=== PATIENT | female | born 1990 | race African-American/Black ===

== ENCOUNTER → 2017-02-25 | Outpatient (CLI) | payer OTHER ==
[2017-02-27 12:47] LABS: QUANTIFERON NEGATIVE (NEGATIVE); QUANTIFERON NIL 0.09 IU/ML
== END | disposition home or self-care (01) ==
LOC: C.LABSPEC 12:29
PROVIDERS: ATTEND Family Medicine
DX: Z11.3 Encounter for screening for infections with a predominantly sexual mode of transmission (principal); Z11.1 Encounter for screening for respiratory tuberculosis

== ENCOUNTER 2019-03-28 20:14 | Inpatient (IN) ==
[2019-03-28] MEDS ORDERED: OXYTOCIN 30 UNITS/500 ML BAG IV PRN (20:55)
--- NOTE | 2019-03-28 20:58 | History & Physical Report ---
Date of Service March 28, 2019 Assessment & Plan (1) : Admit to L&D, labs, IV access. Patient is thinking she'd like to labor naturally and avoid epidural. OK to walk hallways. History of Present Illness Chief Complaint: contractions Primary Care Provider: Chinedu Chau 28 yo @ 39 3/7 presents with regular contractions Q 5 min. No leaking of fluid, no vaginal bleeding. + movement. complicated by multiple uterine fibroids. Allergies Allergy/AdvReac Type Severity Reaction Status Date / Time No Known Drug Allergies Allergy Unknown Verified 03/28/19 20:52 Home Medications Home Medications Medication Instructions Recorded Confirmed Type prenat.vits,socorro,fxy-ysbo-kyawo 1 tab PO DAILY 11/03/18 03/28/19 History Patient History Family History (Updated 11/03/18 @ 08:57 by Alexandra Cervantes) Family/Other Breast cancer Mother Diabetes Hypertension Fibroids Premature labor Father Hypertension Other Kidney disease Social History (Updated 11/03/18 @ 08:57 by Alexandra Cervantes) Preferred Language: Kinyarwanda marital status: Feels Safe at Home: Yes Safety Concerns: Feels Safe At This Time Smoking Status: Never smoker Hx Alcohol Use: No Hx Substance Use: No Review of Systems All systems reviewed & are unremarkable except as noted in HPI & below Physical Exam Physical Exam: FHT Cat 1, [place] Q 5 min SVE 6/100/-2, bulging membranes Constitutional: WD/WN, vitals as above Respiratory: normal respiratory effort, lungs clear to auscultation no respiratory distress Cardiovascular: Rate/Rhythm: regular rate and regular rhythm Gastrointestinal (Abdomen): Inspection/Auscultation: abdomen normal to inspection Percussion/Palpation: abdomen soft; abdomen nontender Gravid. No s/s chorio or abruption. Skin: no rashes, warm and dry Psychiatric: A+Ox3, euthymic affect Results & Data Vital Signs (Past 12 Hours) Vital Signs Pulse Resp BP 03/28/19 20:34 18 03/28/19 20:32 64 127/81
[2019-03-28 21:24] LABS: Hematocrit (blood only) 46.1 % (37-47); Hemoglobin 16.1 g/dL (12.0-16.0); Mean Corpuscular Hemoglobin 30.3 pg (25-34); Mean Corpuscular Volume 86.8 fL (80-100); Mean Platelet Volume 11.6 fL (7.4-10.4); Platelet Count 174 K/uL (130-400); RDW Coefficient of Variation 13.7 % (11.5-14.5); RDW Standard Deviation 43.5 fL (36.4-46.3); Red Blood Count 5.31 M/uL (4.2-5.4); White Blood Count 6.54 K/uL (4.8-10.8)
[2019-03-28 21:27] LABS: Mean Corpuscular Hgb Conc 34.9 g/dL (32-36)
[2019-03-28] MEDS: LACTATED RINGER'S 1,000 ML IV PRN (23:57)
[2019-03-29] MEDS ORDERED: fentaNYL citrate 100 MCG/2 ML VIAL ONE (00:34)
[2019-03-29] MEDS ORDERED: ePHEDrine sulfate 50 MG/ML AMP ONE (00:34)
[2019-03-29] MEDS ORDERED: BUPIVACAINE 0.25% 30 ML VIAL ONE (00:35)
[2019-03-29] MEDS ORDERED: fentaNYL 2MCG/ML ROPIV 1.25MG/ML 100 ML BAG EPI ONE (00:35)
--- NOTE | 2019-03-29 00:35 | Obstetrical Progress Note ---
Date of Service March 29, 2019 Subjective AROM performed, clear fluid. Cervix 7-8/100/-1. Continue to monitor, anticipate . Patient would like epidural at this time. Very uncomfortable with contractions. FHT 160-170, mod tito, +accels. No decels. [place] Q 2-3 min Results & Data Vital Signs (Past 12 Hours) Vital Signs Temp Pulse Resp BP 03/29/19 00:19 37.7 C H 03/29/19 00:08 37.7 C H 18 03/28/19 23:19 37.5 C 79 18 123/71 03/28/19 20:34 37.2 C 18 03/28/19 20:32 64 127/81 PG Care Time/CCT Total # of Minutes Spent Total Time Spent with Patient: Total time spent is greater than 50% in coordination of care (as documented) at patient's floor/unit and/or counseling patient:
--- NOTE | 2019-03-29 00:42 | Anesthesiology Consultation ---
Date of Service March 29, 2019 Assessment & Plan (1) Encounter for pre-operative examination: Chart Review Chart Review: Acceptable Risk for Labor Epidural Consults Requested none ASA ASA2 Proposed Anesthesia Anesthesia Type: Labor Epidural Risk / Benefits Reviewed With: PT / POA / Parent / Guardian, Accepts Plan and Informed Consent Obtained History Height/Weight Height: 5 ft 8 in Weight: 67.585 kg Allergies Allergy/AdvReac Type Severity Reaction Status Date / Time No Known Drug Allergies Allergy Unknown Verified 03/28/19 20:52 Medications Home Medications Medication Instructions Recorded Confirmed Last Taken prenat.vits,socorro,reg-dzox-rndhk 1 tab PO DAILY 11/03/18 03/28/19 03/28/19 08:00 Active Medications Generic Name Dose Route Start Last Admin Trade Name Freq PRN Reason Stop Dose Admin Lactated Ringer's 1,000 mls @ 125 mls/hr 03/28/19 20:55 03/28/19 23:57 Lr IV 03/30/19 20:54 999 mls/hr .Q8H PRN Administration L&D Protocol Protocol Past Medical History Medical History Fertility testing History of varicella Hx of migraine headaches Hx of tuberculosis Exercise / Class Metabolic Activity II 4-5 Yardwork/Stairs/Walk up hill Past Family History Family History Family/Other Breast cancer Mother Diabetes Hypertension Fibroids Premature labor Father Hypertension Other Kidney disease Past Surgical History Surgical History No pertinent past surgical history Past Anesthesia History No Hx of Anesthesia Complications and No Family Hx of Anesthesia Complications History of PONV No Hx of PONV and No Hx of Motion Sickness Social History Smoking Status: Never smoker Hx Alcohol Use: No Hx Substance Use: No Physical Exam Vital Signs Last Vital Signs Temp 99.9 F H 03/29/19 00:19 Pulse 79 03/28/19 23:19 Resp 18 03/29/19 00:08 BP 123/71 03/28/19 23:19 ENMT Mouth: no dentition abnormality Thyromental Distance: > or= 3.5 Finger Breadths Mallampati Class: II Neck normal visual inspection Respiratory normal respiratory effort Auscultation: lungs clear to auscultation bilaterally Cardiovascular Rate/Rhythm: regular rate and regular rhythm Testing Laboratory Results 03/28/19 21:15
[2019-03-29] MEDS: LACTATED RINGER'S 1,000 ML IV PRN (00:58)
[2019-03-29] MEDS ORDERED: NALOXONE HCL 1 MG in SODIUM CHLORIDE 0.9% 1000ML 1,000 ML IV PRN (01:01)
[2019-03-29] MEDS ORDERED: NALBUPHINE HCL INJ 10 MG/ML AMP IV PRN (01:01)
[2019-03-29] MEDS ORDERED: ONDANSETRON INJ 2 MG/ML 2 ML VIAL IV PRN (01:01)
[2019-03-29] MEDS ORDERED: ePHEDrine sulfate 50 MG/ML AMP IV PRN (01:01)
[2019-03-29] MEDS ORDERED: NALOXONE HCL 0.4 MG/1 ML VIAL/CARP IV PRN (01:01)
[2019-03-29] MEDS ORDERED: fentaNYL 2MCG/ML ROPIV 1.25MG/ML 100 ML BAG EPI PRN (01:01)
[2019-03-29] MEDS ORDERED: DiphenhydrAMINE HCL 50 MG/ML VIAL IV PRN (01:01)
--- NOTE | 2019-03-29 02:58 | Obstetrical Progress Note ---
Date of Service March 29, 2019 Subjective Comfortable with epidural. FHT Cat 1 [place] Q 2 Continue labor. Results & Data Vital Signs (Past 12 Hours) Vital Signs Temp Pulse Resp BP Pulse Ox 03/29/19 02:55 72 133/82 03/29/19 02:51 71 97 03/29/19 02:47 106 H 93 03/29/19 02:46 98 H 95 03/29/19 02:42 77 90 03/29/19 02:41 76 129/77 98 03/29/19 02:36 76 99 03/29/19 02:31 69 97 03/29/19 02:30 37.8 C H 18 03/29/19 02:26 70 99 03/29/19 02:25 69 132/80 03/29/19 02:21 75 95 03/29/19 02:16 77 99 03/29/19 02:13 82 92 03/29/19 02:11 71 139/76 100 03/29/19 02:06 75 99 03/29/19 02:01 81 100 03/29/19 01:56 81 98 03/29/19 01:54 75 130/77 03/29/19 01:51 78 97 03/29/19 01:46 79 100 03/29/19 01:41 72 131/77 100 03/29/19 01:36 78 100 03/29/19 01:31 75 98 03/29/19 01:30 18 03/29/19 01:26 72 99 03/29/19 01:24 73 118/67 03/29/19 01:21 77 100 03/29/19 01:16 73 100 03/29/19 01:15 18 03/29/19 01:11 76 100 03/29/19 01:10 18 03/29/19 01:09 76 118/65 92 03/29/19 01:08 73 116/61 03/29/19 01:06 77 128/65 100 03/29/19 01:05 18 03/29/19 01:04 81 135/60 03/29/19 01:02 77 126/63 03/29/19 01:01 83 100 03/29/19 01:00 90 18 160/88 H 03/29/19 00:58 96 H 121/64 89 L 03/29/19 00:56 88 99 03/29/19 00:51 87 99 03/29/19 00:47 18 03/29/19 00:46 99 H 98 03/29/19 00:41 117 H 100 03/29/19 00:30 37.7 C H 03/29/19 00:19 37.7 C H 03/29/19 00:08 37.7 C H 18 03/28/19 23:19 37.5 C 79 18 123/71 03/28/19 20:34 37.2 C 18 03/28/19 20:32 64 127/81 PG Care Time/CCT Total # of Minutes Spent Total Time Spent with Patient: Total time spent is greater than 50% in coordination of care (as documented) at patient's floor/unit and/or counseling patient:
--- NOTE | 2019-03-29 06:15 | Delivery Summary ---
Vaginal Delivery Summary Date of Service March 29, 2019 Vaginal Delivery Summary Vaginal Delivery Summary: Pre-delivery diagnoses: 28yo @ 39 4/7, spontaneous labor Post-delivery diagnoses: same Procedure: spontaneous vaginal delivery, repair of 2nd degree perineal l aceration Surgeon: Jessica Wesley DO Complications: none Findings: Viable female . Apgars: 8/9 . Weight pending, please see nursery records Estimated blood loss: 300ml Description of delivery: The patient progressed to complete with epidural anesthesia. She then began to push. She spontaneously vaginally delivered a viable from the cephalic presentation. The head delivered in RK position. Nuchal cord x 1 noted, loose, easily reduced. The anterior shoulder delivered, followed by the posterior shoulder, followed by the body. The baby was placed on mother's abdomen and a spontaneous cry was heard. Delayed cord clamping was employed, and the cord was doubly clamped and cut. Cord blood was obtained. The placenta was delivered spontaneously intact with a 3-vessel cord. The uterus and vagina were swept of clots and debris. IV pitocin was given. The uterus became firm. The cervix, vagina, and perineum were inspected and a 2nd degree perineal laceration was noted and repaired in standard fashion with 3-0 vicryl. Excellent hemostasis was observed. The mother and baby are recovering in stable and good condition in the room. Sponge and instrument counts were correct x 2. DO SOLITARIO Hernandez
[2019-03-29] MEDS ORDERED: ACETAMINOPHEN 325 MG TAB PO PRN (06:52)
[2019-03-29] MEDS ORDERED: SUPERCREAM 0.870% 15 GM JAR EXT PRN (06:52)
[2019-03-29] MEDS ORDERED: HYDROCORTISONE ACETATE 25 MG SUPP PR PRN (06:52)
[2019-03-29] MEDS ORDERED: DIPHTHERIA/TETANUS/PERTUSSIS 0.5 ML SYR/VIAL IM ONE (06:52)
[2019-03-29] MEDS ORDERED: bisacodyL 10 MG SUPP PR PRN (06:52)
[2019-03-29] MEDS ORDERED: BENZOCAINE 20% AER SPR 82.5 GM CAN EXT PRN (06:52)
[2019-03-29] MEDS ORDERED: OXYTOCIN 30 UNITS/500 ML BAG IV PRN (06:52)
[2019-03-29] MEDS ORDERED: OXYCODONE/ACETAMINOPHEN 5mg/325mg TAB PO PRN (06:52)
--- NOTE | 2019-03-29 08:25 | Anesthesia Procedure Note ---
Date of Service March 29, 2019 Anesthesia Post Epidural Note Vital Signs Vital Signs: Temp Pulse Resp BP Pulse Ox 37.0 C 80 20 123/79 100 03/29/19 07:30 03/29/19 08:18 03/29/19 08:03 03/29/19 08:18 03/29/19 06:01 Notes Mental Status: alert / awake / arousable Nausea / Vomiting: adequately controlled Pain: adequately controlled Airway Patency, RR, SpO2: stable & adequate BP & HR: stable & adequate Hydration State: stable & adequate Neuraxial Anesthesia: was administered and sensory block is resolving Anesthetic Complications: no major complications apparent Epidural: Removed without complications and With tip intact
[2019-03-29] MEDS: PRENATAL VITAMIN 1 TAB PO SCH (18:16)
[2019-03-29] MEDS: IBUPROFEN 600 MG TAB PO PRN (19:32)
[2019-03-29] MEDS: DOCUSATE SODIUM 100 MG CAP PO SCH (21:25)
[2019-03-30] MEDS: IBUPROFEN 600 MG TAB PO PRN ×5 (00:31→23:35)
[2019-03-30 06:48] LABS: Hematocrit (blood only) 32.2 % (37-47); Hemoglobin 10.9 g/dL (12.0-16.0)
--- NOTE | 2019-03-30 06:51 | Obstetrical Progress Note ---
Date of Service March 30, 2019 Assessment & Plan (1) : PPD#1 doing well. Continue routine care. Subjective Ambulation: ambulating normally Voiding: no voiding problems Diet Tolerance:: regular diet Lochia:: Moderate Feeding Type:: breast feeding PPD#1 doing well. Review of Systems All systems reviewed & are unremarkable except as noted in HPI & below Physical Exam Constitutional WD/WN, vitals as above no acute distress Respiratory normal respiratory effort Cardiovascular Rate/Rhythm: regular rate and regular rhythm Gastrointestinal (Abdomen) Inspection/Auscultation: abdomen normal to inspection; abdomen not distended Percussion/Palpation: abdomen soft Genitourinary OB Exam Abdomen: + fundal height Fundus: + firm; not tender Results & Data Vital Signs (Past 12 Hours) Vital Signs Temp Pulse Resp BP 03/30/19 04:30 36.7 C 65 18 113/76 03/30/19 00:30 36.8 C 79 17 101/62 03/29/19 19:30 37.0 C 92 H 18 108/73
--- NOTE | 2019-03-30 07:07 | Obstetrical Progress Note ---
Date of Service March 30, 2019 Subjective Hgb dropped from 16.1 on admission to 10.9 this AM. Patient states she feels like she is having a large amount of bleeding, goes on to say she is changing a pad every 3 hours. Check of pads in garbage shows appearance of normal amount of lochia. Vitals have been normal and stable. Uterine fundus is firm. By physical exam and review of vitals, patient is stable. However, due to large drop in Hgb, will recheck Hgb again at noon. Results & Data Vital Signs (Past 12 Hours) Vital Signs Temp Pulse Resp BP 03/30/19 04:30 36.7 C 65 18 113/76 03/30/19 00:30 36.8 C 79 17 101/62 03/29/19 19:30 37.0 C 92 H 18 108/73 PG Care Time/CCT Total # of Minutes Spent Total Time Spent with Patient: Total time spent is greater than 50% in coordination of care (as documented) at patient's floor/unit and/or counseling patient:
[2019-03-30] MEDS: PRENATAL VITAMIN 1 TAB PO SCH (08:18)
[2019-03-30 11:54] LABS: Hematocrit (blood only) 32.3 % (37-47); Hemoglobin 10.7 g/dL (12.0-16.0)
[2019-03-30] MEDS: DOCUSATE SODIUM 100 MG CAP PO SCH ×2 (15:15→21:00)
[2019-03-30 16:32] LABS: Hematocrit (blood only) 32.6 % (37-47)
[2019-03-30] MEDS ORDERED: bisacodyL 5 MG TABEC PO SCH (20:00)
[2019-03-31] MEDS: IBUPROFEN 600 MG TAB PO PRN (06:42)
[2019-03-31 06:44] LABS: Hematocrit (blood only) 31.3 % (37-47); Hemoglobin 10.4 g/dL (12.0-16.0)
--- NOTE | 2019-03-31 07:31 | Obstetrical Progress Note ---
Date of Service March 31, 2019 Assessment & Plan (1) Uterine fibroids affecting : (2) Supervision of normal first : - H/H stable - doing well - patient desires d/c - instructions given - f/u in 6 weeks for pp check Subjective Voiding: no voiding problems Diet Tolerance:: regular diet Feeding Type:: breast feeding Physical Exam Constitutional WD/WN, vitals as above Gastrointestinal (Abdomen) Fundus firm below umbilicus Musculoskeletal No deep calf tenderness Results & Data Vital Signs (Past 12 Hours) Vital Signs Temp Pulse Resp BP 03/30/19 23:25 97.9 F 66 18 121/78
[2019-03-31] MEDS: DOCUSATE SODIUM 100 MG CAP PO SCH (08:42)
[2019-03-31] MEDS: PRENATAL VITAMIN 1 TAB PO SCH (08:42)
== END 2019-03-31 13:15 | disposition home or self-care (01) | DRG 807 ==
LOC: OPB 20:14 → 4S1 20:15 → 4S2 03-29 10:04

== ENCOUNTER 2022-03-03 20:07 | Inpatient (IN) ==
[2022-03-03] MEDS ORDERED: LIDOCAINE 1% LOCAL 20 ML VIAL INFIL PRN (20:10)
[2022-03-03] MEDS ORDERED: LACTATED RINGER'S 1,000 ML IV PRN (20:10)
[2022-03-03] MEDS ORDERED: OXYTOCIN 30 UNITS/500 ML BAG IV PRN ×2 (20:10→21:10)
--- NOTE | 2022-03-03 20:29 | History & Physical Report ---
Date of Service March 03, 2022 Assessment & Plan (1) : (2) Fibroids: Plan 31 yo at 39 wks presents in labor VSS Fetus cat 1 Labor - expectant management GBS neg desires epidural History of Present Illness Chief Complaint: Ctx, LOF Primary Care Provider: NO PCP 31 yo at 39 wga presents w/ ctx and LOF. 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 Hx: G1 SAB G2 2020 G3 current irreg cycles denies hx STIs Allergies Allergy/AdvReac Type Severity Reaction Status Date / Time No Known Drug Allergies Allergy nkda Verified 03/03/22 20:12 Home Medications Medication Instructions Recorded Confirmed Type ferrous sulfate [Iron (ferrous PO 10/28/20 02/28/22 History sulfate)] multivitamin 1 tab PO DAILY 10/28/20 03/03/22 History breast pump #1 ea 01/18/22 02/28/22 Rx Patient History Medical History (Updated 03/03/22 @ 20:23 by Daylin Mckinley MD) Fertility testing Fibroids History of varicella Hx of migraine headaches Hx of tuberculosis Surgical History No pertinent past surgical history Family History Family/Other Breast cancer Mother Diabetes Hypertension Fibroids Premature labor Father Hypertension Other Kidney disease Social History Smoking Status: Never smoker Hx Alcohol Use: No Hx Substance Use: No Preferred Language: Liberian Communication Ability: Effective Roller Leveler Required: No Beliefs That Will Affect Care: None marital status: marital status details: Donny (35) [phone] Current Living Situation: Spouse Current Living Situation Comment: lives with spouse and daughter, no pets. 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 NON-REACTIVE (NON-REACTIVE) 07/31/21 Hepatitis C Antibody (EIA) NON-REACTIVE (NON-REACTIVE) 07/31/21 HIV (1&2) Ab and P24 Ag, 4th Gener NON-REACTIVE (NON-REACTIVE) 07/31/21 Glucose 1 Hour 50 gm Load 80 mg/dl (70-130) 12/20/21 Maternal Serum Alpha Fetoprotein 43.1 ng/mL 09/27/21 OB Optional Labs: Chlamydia trachomatis RNA NOT DETECTED (NOT DETECTED) 07/31/21 Neisseria gonorrhoeae RNA NOT DETECTED (NOT DETECTED) 07/31/21 Alpha Fetoprotein Triple Screen SEE NOTE 09/27/21 Labs Reviewed: cf/sma neg in prior (08/19/18) cfdna-low risk--mln afp neg gbs neg Diagnostic Findings post plac 01/18 EFW 73% Coding Level of Care Code None Diagnoses Z34.90 Fibroids D21.9
[2022-03-03 20:30] LABS: Hematocrit (blood only) 37.4 % (34.1-44.9); Hemoglobin 13.1 g/dl (12.0-16.0); Mean Corpuscular Hemoglobin 29.8 pg (25.0-34.0); Mean Corpuscular Volume 85.2 fL (80.0-100.0); Mean Platelet Volume 11.1 fL (9.4-12.3); Platelet Count 188 K/uL (130-400); RDW Coefficient of Variation 12.8 % (11.5-14.5); RDW Standard Deviation 39.3 fL (36.4-46.3); Red Blood Count 4.39 M/uL (3.93-5.22); White Blood Count 7.31 K/ul (4.8-10.8)
[2022-03-03] MEDS ORDERED: ACETAMINOPHEN 325 MG TAB PO PRN (21:10)
[2022-03-03] MEDS ORDERED: HYDROCORTISONE ACETATE 25 MG SUPP PR PRN (21:10)
[2022-03-03] MEDS ORDERED: DIPHTHERIA/TETANUS/PERTUSSIS 0.5 ML SYR/VIAL IM ONE (21:10)
[2022-03-03] MEDS ORDERED: BENZOCAINE 20% AER SPR 82.5 GM CAN EXT PRN (21:10)
--- NOTE | 2022-03-03 21:11 | Delivery Summary ---
Vaginal Delivery Summary Date of Service March 03, 2022 Vaginal Delivery Summary (vaginal lac) PREOPERATIVE DIAGNOSIS: 1. Single intrauterine at 39 wga 2. Labor 3. Uterine fibroid POSTOPERATIVE DIAGNOSIS: 1. Single intrauterine at 39 wga 2. Labor 3. Uterine fibroid 4. Delivered PROCEDURE: 1. Normal spontaneous vaginal delivery. SURGEON: Daylin Mckinley MD ANESTHESIA: Local ESTIMATED BLOOD LOSS: 300 mL FLUIDS: Continuous LR. URINE OUTPUT: None. COMPLICATIONS: None. CONDITION: Stable. INDICATIONS: 31 yo at 39 wga presented to L&D with contractions increasing in frequency and intensity as well as LOF. She was found to be SROM and 8cm. She rapidly progressed to complete and desired to push. FINDINGS: A viable female infant, weight pending with Apgars of 9 and 9 at 1 and 5 minutes respectively. SPECIMEN: Cord blood OPERATIVE REPORT: The patient progressed to 10 cm, 100% effaced and +2 station, pushed over intact perineum with anesthesia to deliver a viable female infant, weight and Apgars as above. Head of delivered in RK position. No nuchal cord was present. Body and shoulders were delivered without difficulty. was delivered to maternal abdomen and nursing staff. Delayed cord clamping was performed for 60 seconds. Cord was clamped and cut. Cord blood was obtained. Placenta delivered spontaneously intact with 3-vessel cord. IV oxytocin and fundal massage were given for excellent hemostasis. Vagina, cervix, perineum, and placenta were inspected. A small left vaginal tear was noted at the introitus and repaired using 3-0 vicryl after lidocaine was injected. There was excellent hemostasis. Sponge and needle counts correct x2. No sponges were left behind. Mother and stable in immediate period. [facility] Vaginal Delivery Charge Vaginal Delivery Codes: 45860 global code for the antepartum, delivery, and post- Delivery Type Details: (vaginal lac)
[2022-03-03] MEDS ORDERED: IBUPROFEN 600 MG TAB PO ONE (21:19)
[2022-03-04] MEDS: IBUPROFEN 600 MG TAB PO PRN ×4 (01:20→17:22)
--- NOTE | 2022-03-04 07:16 | Obstetrical Progress Note ---
Date of Service March 04, 2022 Assessment & Plan (1) Encounter for care and examination after delivery: 31 yo PP1 from , doing well -Meeting all pp milestones -B+/rubella immune/ -f/u 6 weeks for appt. They may or may not want d/c after 24 hrs, aware may be very late tonight but ok to do so if desires. Subjective Ambulation: ambulating normally Voiding: no voiding problems Passing Gas:: Yes Diet Tolerance:: regular diet Lochia:: Small Feeding Type:: breast feeding Pain well managed with medication Review of Systems Denies fevers, chills, n/v, [place], CP, SOB Physical Exam Constitutional WD/WN, vitals as above no acute distress Respiratory normal respiratory effort, lungs clear to auscultation Cardiovascular RRR, no murmur, no edema Gastrointestinal (Abdomen) Percussion/Palpation: abdomen soft; abdomen nontender fundus firm at umbilicus and NT Musculoskeletal BLE symmetric, nonerythematous, nontender Results & Data ([facility]) Vital Signs (Past 12 Hours) Vital Signs Temp Pulse Pulse Resp BP BP Pulse Ox 03/04/22 02:35 99.0 F 73 16 112/72 98 03/04/22 00:00 98.1 F 70 16 116/72 100 03/03/22 23:03 98.2 F 18 03/03/22 22:32 18 03/03/22 22:02 18 03/03/22 21:32 18 03/03/22 21:17 18 03/03/22 21:47 18 03/03/22 23:17 88 116/65 03/03/22 23:03 73 110/57 L 03/03/22 22:47 82 122/73 03/03/22 22:32 90 112/67 03/03/22 22:17 74 114/66 03/03/22 22:02 85 115/64 03/03/22 21:47 75 129/79 03/03/22 21:32 78 125/75 03/03/22 21:17 84 137/90 03/03/22 21:03 102 H 139/98 03/03/22 21:03 20 03/03/22 20:13 97.9 F 20 123/66 O2 Del Method 12/11/22 02:35 Room Air 03/04/22 00:00 Room Air 03/03/22 23:03 03/03/22 22:32 03/03/22 22:02 03/03/22 21:32 03/03/22 21:17 03/03/22 21:47 03/03/22 23:17 03/03/22 23:03 03/03/22 22:47 03/03/22 22:32 03/03/22 22:17 03/03/22 22:02 03/03/22 21:47 03/03/22 21:32 03/03/22 21:17 03/03/22 21:03 03/03/22 21:03 03/03/22 20:13
[2022-03-04] MEDS ORDERED: PRENATAL VITAMIN 1 TAB PO SCH (08:00)
[2022-03-04] MEDS ORDERED: DOCUSATE SODIUM 100 MG CAP PO SCH (08:00)
[2022-03-04] MEDS ORDERED: bisacodyL 5 MG TABEC PO SCH (20:00)
[2022-03-05] MEDS ORDERED: bisacodyL 10 MG SUPP PR PRN (21:10)
== END 2022-03-04 21:55 | disposition home or self-care (01) | DRG 807 ==
LOC: OPB 20:07 → 4S1 20:08 → 4E2 23:53